=== PATIENT | female | born 1945 ===

== ENCOUNTER → 2024-02-17 18:51 | Outpatient (REF) | payer MEDICARE, MEDICAID, SELFPAY | LOC: MRI 3T 18:51 | PROVIDERS: ATTENDING PHYSICIAN Internal Medicine Gastroenterology; FAMILY PHYSICIAN Internal Medicine | DX: B18.1 Chronic viral hepatitis B without delta-agent (principal); D18.03 Hemangioma of intra-abdominal structures | CPT/HCPCS: 74183; A9581 ==